=== PATIENT | male | born 1995 | race African-American/Black ===

== ENCOUNTER 2021-06-20 14:51 | Emergency (ER) | payer MEDICAID ==
[~2021-06-20] VITALS: Ht 182.9 cm; Wt 100.0 kg
[2021-06-20 14:54] VITALS: BP 140/89
== END 2021-06-20 16:00 | disposition left against medical advice (07) ==
LOC: ER 14:51
DX: Z53.21 Procedure and treatment not carried out due to patient leaving prior to being seen by health care provider (principal)